=== PATIENT | male | born 1965 | race Caucasian/White ===

== ENCOUNTER 2019-07-16 09:01 | Day surgery (SDC) | payer OTHER ==
[~2019-07-16 09:01] MED LIST: BUPR1 PO; CEPH500 PO; IBUP800 PO
--- NOTE | 2019-07-16 11:20 | NUR ---
PT HAS HAD UNCOMPLICATED POST PROCEDURE COURSE TO THIS POINT. NO C/O PAIN OR DISCOMFORT. SITTING IN UPRIGHT POSITION ON STRETCHER WATCHING VIDEOS ON PHONE. S.O. AT BEDSIDE. ACCESS SITE TO RIGHT POSTERIOR MID BACK WITHOUT DRAINAIGE. SOFT SURROUNDING AREA. NO SWELLING NOTED. VSS.
--- NOTE | 2019-07-16 11:40 | NUR ---
PT AMBULATED TO BATHROOM WITHOUT DIFFICULTY. NO C/O DIZZINESS. STEADY ON FEET. CONTINUES TO DENY PAIN.
--- NOTE | 2019-07-16 12:38 | NUR ---
Discharge instructions reviewed with patient. Patient verbalizes understanding. Copy given to patient to take home. AMBULATED OUT OF DEPARTMENT.
[2019-07-31] MEDS ORDERED: SUBOXONE 8 MG-1 EACH SL (16:12)
[2019-07-31] MEDS ORDERED: Budeprion Sr150 MG PO (16:12)
[2019-07-31] MEDS ORDERED: AMLO10 PO (16:13)
[2019-07-31] MEDS ORDERED: LISI20 PO (16:13)
[2019-07-31] MEDS ORDERED: IBUP800 PO (16:14)
[2019-07-31] MEDS ORDERED: Hair, Skin & N1 EACH PO (16:14)
[2019-07-31] MEDS ORDERED: TRAZ50 PO (16:16)
[2019-07-31] MEDS ORDERED: DICL75ER PO (16:18)
[2019-07-31] MEDS ORDERED: CLOBET30L TOP (16:19)
[2019-07-31] MEDS ORDERED: CYCL10 PO (16:21)
[2019-07-31] MEDS ORDERED: UREA226.8 GM TOP (16:21)
[2019-07-31] MEDS ORDERED: ALBU90OI INH (16:22)
== END 2019-07-16 23:10 | disposition home or self-care (01) ==
LOC: CT 09:01
DX: C96.9 Malignant neoplasm of lymphoid, hematopoietic and related tissue, unspecified (principal); I10 Essential (primary) hypertension; Z87.891 Personal history of nicotine dependence
CPT/HCPCS: 49180; 77012; 88305; 88341; 88342

== ENCOUNTER 2019-07-25 13:45 | Day surgery (SDC) | payer OTHER ==
[~2019-07-25] VITALS: Ht 200.7 cm; Wt 106.0 kg
[2019-07-25] MEDS ORDERED: DICMIS50EC (14:26)
--- NOTE | 2019-07-25 16:39 | NUR ---
07/25/19 1639 Belén Shaw S 1418 ASSESSING PT. FOR HIS UPPER ENDO. OBSERVED 3LEAD EKG & NOTIFIED DR. CLAYTON OF PT.'S RHYTHM, ORDER RECEIVED FOR 12LEAD EKG WHICH WAS DONE & SHOWED ATRIAL FLUTTER & ACUTE NM FROM [facility] ON 12LEAD. DR. CLAYTON & DR. HALL TALKED WITH PT. & INSTRUCTED PT. THAT THE UPPER ENDO NEEDED TO BE CANCELLED & HE NEEDED TO GO TO THE ER. PT. REFUSED TO GO TO THE ER SO DR. HALL ORDERED A TROPONIN STAT HERE AT [facility]. PT. WAS ADVISED TO STAY HERE FOR THE RESULTS OF THE LAB DRAW BUT REFUSED TO WAIT SO SIGNED A AMA FORM AT 1541. TROPONIN WAS DRAWN AT 1530 BY [facility] PER DR. SAM. DR. BLANK ALSO INSTRUCTED PT. TO GO TO THE ER BUT REFUSED. DR. BLANK INFORMED PT. OF RISKS WHICH WERE LISTED ON THE AMA FORM.[facility]ANNA INSTUCTED PT. THAT IF HE HAD ANY CHEST PAIN OR PRESSURE, ARM PAIN OR NUMBNESS, SOB, DIZZINESS & NAUSEA OR ANYTHING ABNORMAL FEELING THAT HE NEEDED TO GO TO THE ER OR CALL 911. PT. AGREED. PT.'S IV WAS ALSO DISCONTINUED AT 1530. PT. AMBULATED WITH TO [facility].
[2019-07-31] MEDS ORDERED: SUBOXONE 8 MG-1 EACH SL (16:12)
[2019-07-31] MEDS ORDERED: Budeprion Sr150 MG PO (16:12)
[2019-07-31] MEDS ORDERED: LISI20 PO (16:13)
[2019-07-31] MEDS ORDERED: AMLO10 PO (16:13)
[2019-07-31] MEDS ORDERED: Hair, Skin & N1 EACH PO (16:14)
[2019-07-31] MEDS ORDERED: IBUP800 PO (16:14)
[2019-07-31] MEDS ORDERED: TRAZ50 PO (16:16)
[2019-07-31] MEDS ORDERED: DICL75ER PO (16:18)
[2019-07-31] MEDS ORDERED: CLOBET30L TOP (16:19)
[2019-07-31] MEDS ORDERED: UREA226.8 GM TOP (16:21)
[2019-07-31] MEDS ORDERED: CYCL10 PO (16:21)
[2019-07-31] MEDS ORDERED: ALBU90OI INH (16:22)
== END 2019-07-25 13:50 | disposition home or self-care (01) ==
LOC: ORSCSDS 13:45
DX: C80.1 Malignant (primary) neoplasm, unspecified (principal); R59.9 Enlarged lymph nodes, unspecified; Z53.9 Procedure and treatment not carried out, unspecified reason
CPT/HCPCS: 84484; 93005; 93010; J7120

== ENCOUNTER 2019-08-02 06:55 | Day surgery (SDC) | payer OTHER ==
[~2019-08-02] VITALS: Ht 193 cm; Wt 109.1 kg
[~2019-08-02 06:55] MED LIST changes: +ALBU90OI INH; +AMLO10 PO; +Budeprion Sr150 MG PO; +CLOBET30L TOP; +CYCL10 PO; +DICL75ER PO; +DICMIS50EC; +Hair, Skin & N1 EACH PO; +LISI20 PO; +SUBOXONE 8 MG-1 EACH SL; +TRAZ50 PO; +UREA226.8 GM TOP
--- NOTE | 2019-08-02 09:20 | NUR ---
0830- History, Chart, Medications and Allergies reviewed before start of procedure. Patient confirms NPO status and agrees with scheduled surgery. Patient States Post-Procedure ride home has been arranged with his .
--- NOTE | 2019-08-02 09:44 | NUR ---
0935- NO C/O. PATIENT ALERT AND TALKING, BREATHING RA. VSS. Discharge instructions reviewed with patient. Patient verbalizes understanding. Copy given to patient to take home. Patient verbalizes desire to discharge home. Tolerinag PO fluids. Gait steady. Up to dress.
== END 2019-08-02 09:40 | disposition home or self-care (01) ==
LOC: ORSCMMR 06:55 → ORD 08:30 → ORSCMMR 09:40
PROVIDERS: Surgery
PROC: 0DJ08ZZ Inspection of Upper Intestinal Tract, Via Natural or Artificial Opening Endoscopic (ICD-10-PCS; principal; 2019-08-02 08:30)
DX: C80.1 Malignant (primary) neoplasm, unspecified (principal); I10 Essential (primary) hypertension; F41.8 Other specified anxiety disorders; Z79.899 Other long term (current) drug therapy
CPT/HCPCS: J2250; J2704; J7120

== ENCOUNTER 2020-10-19 14:47 | Emergency (ER) | payer OTHER ==
[~2020-10-19] VITALS: Ht 200.7 cm; Wt 117.9 kg
[2020-10-19 15:21] LABS: BASOPHILS ABSOLUTE AUTO 0.03 K/mm3 (0.00-0.23); BASOPHILS PERCENT AUTO 1 % (0-2); EOSINOPHILS ABSOLUTE AUTO 0.09 K/mm3 (0.00-0.68); EOSINOPHILS PERCENT AUTO 1 % (0-6); Hemoglobin 13.9 g/dL (13.5-17.5); IMMATURE GRAN ABSOLUTE AUTO 0.03 K/mm3 (0.00-0.10); IMMATURE GRAN PERCENT AUTO 1 % (0-1); LYMPHOCYTES ABSOLUTE AUTO 1.65 K/mm3 (0.84-5.20); LYMPHOCYTES PERCENT AUTO 26 % (21-46); MONOCYTES ABSOLUTE AUTO 0.54 K/mm3 (0.16-1.47); MONOCYTES PERCENT AUTO 8 % (4-13); Mean Corpuscular HGB 28.9 pg (26.0-34.0); Mean Corpuscular HGB Conc 33.9 g/dL (31.5-36.5); Mean Corpuscular Volume 85 fL (80-100); Mean Platelet Volume 9.5 fL (9.1-12.4); NEUTROPHILS ABSOLUTE AUTO 4.13 K/mm3 (1.96-9.15); NEUTROPHILS PERCENT AUTO 64 % (41-73); Platelet Count 255 K/mm3 (150-400); RDW Coefficient Variation 13.7 % (11.7-14.2); RDW Standard Deviation 42.8 fL (35.1-46.3); Red Blood Cell Count 4.81 M/mm3 (4.30-5.90); White Blood Cell Count 6.47 K/mm3 (4.00-11.30)
[2020-10-19 15:29] LABS: Source, Urine Clean Catch
[2020-10-19 15:35] LABS: Appearance, Urine Clear (Clear); Bilirubin, Urine Neg (Neg); Blood, Urine 1+ (Neg); Color, Urine Yellow (P-Yellow); Glucose Qualitative, Urine Neg (Neg); Ketones, Urine Neg (Neg); Leukocyte Esterase, Urine Neg (Neg); Nitrite, Urine Neg (Neg); Protein, Urine Neg (Neg); Urobilinogen, Urine NORM (Normal)
[2020-10-19 15:53] LABS: Alanine Aminotransfer (ALT/SGP 139 U/L (12-78); Albumin, Blood 3.1 g/dL (3.4-5.0); Albumin/Globulin Ratio 0.7 (0.8-1.8); Alk Phos 384 U/L (50-136); Anion Gap 7 mmol/L (6-16); Aspartate Aminotrans (AST/SGOT 36 U/L (12-37); Bilirubin, Total 0.5 mg/dL (0.1-1.0); Blood Urea Nitrogen 19 mg/dL (8-24); Bun/Creatinine Ratio 22.5 (12.0-20.0); CO2, Blood 26 mmol/L (21-32); Calcium, Blood 8.9 mg/dL (8.5-10.1); Chloride, Blood 103 mmol/L (98-108); Creatinine, Blood 0.85 mg/dL (0.60-1.20); Globulin, Blood 4.3 g/dL (2.2-4.0); Glomerular Filtration Rate >60 (60-); Glucose, Blood 173 mg/dL (70-99); Potassium, Blood 4.2 mmol/L (3.5-5.5); Sodium, Blood 136 mmol/L (136-145); Total Protein, Blood 7.4 g/dL (6.4-8.2)
[2020-10-19 16:10] LABS: Bacteria Few /hpf; Squamous Epithelial Cells Not Seen /hpf (Few); White Blood Cells, Urine 0-2 /hpf (0-5)
[2020-10-19 16:42] LABS: Influenza A, PCR Negative (NEGATIVE); Influenza B, PCR Negative (NEGATIVE); Resp Syncytial Virus, PCR Negative (NEGATIVE); SARS-Cov-2 (COVID-19) PCR, MMC Negative (NEGATIVE)
== END 2020-10-19 17:10 | disposition home or self-care (01) ==
LOC: ER 14:47
PROVIDERS: Emergency Medicine
DX: G62.9 Polyneuropathy, unspecified (principal); B34.9 Viral infection, unspecified; Z20.828 Contact with and (suspected) exposure to other viral communicable diseases; Z79.899 Other long term (current) drug therapy
CPT/HCPCS: 0241U; 36415; 80053; 81001; 85025; 93005; 93010; 99283-25

== ENCOUNTER 2020-10-22 19:25 | Emergency (ER) | payer OTHER ==
[~2020-10-22] VITALS: Ht 200.7 cm; Wt 117.9 kg
[2020-10-22 20:22] LABS: BASOPHILS ABSOLUTE AUTO 0.03 K/mm3 (0.00-0.23); BASOPHILS PERCENT AUTO 1 % (0-2); EOSINOPHILS ABSOLUTE AUTO 0.04 K/mm3 (0.00-0.68); EOSINOPHILS PERCENT AUTO 1 % (0-6); Hematocrit 38.9 % (37.0-53.0); IMMATURE GRAN ABSOLUTE AUTO 0.04 K/mm3 (0.00-0.10); IMMATURE GRAN PERCENT AUTO 1 % (0-1); LYMPHOCYTES ABSOLUTE AUTO 1.06 K/mm3 (0.84-5.20); LYMPHOCYTES PERCENT AUTO 19 % (21-46); MONOCYTES ABSOLUTE AUTO 0.67 K/mm3 (0.16-1.47); MONOCYTES PERCENT AUTO 12 % (4-13); Mean Corpuscular HGB 28.8 pg (26.0-34.0); Mean Corpuscular HGB Conc 33.4 g/dL (31.5-36.5); Mean Corpuscular Volume 86 fL (80-100); Mean Platelet Volume 8.9 fL (9.1-12.4); NEUTROPHILS ABSOLUTE AUTO 3.69 K/mm3 (1.96-9.15); NEUTROPHILS PERCENT AUTO 67 % (41-73); Platelet Count 363 K/mm3 (150-400); RDW Coefficient Variation 13.3 % (11.7-14.2); RDW Standard Deviation 41.9 fL (35.1-46.3); Red Blood Cell Count 4.52 M/mm3 (4.30-5.90); White Blood Cell Count 5.53 K/mm3 (4.00-11.30)
[2020-10-22 20:37] LABS: Source, Urine Clean Catch
[2020-10-22 20:40] LABS: Bilirubin, Urine Neg (Neg); Blood, Urine Neg (Neg); Glucose Qualitative, Urine Neg (Neg); Ketones, Urine Neg (Neg); Leukocyte Esterase, Urine Neg (Neg); Nitrite, Urine Neg (Neg); Protein, Urine Neg (Neg); Specific Gravity, Urine 1.005 (1.003-1.022); Urobilinogen, Urine NORM (Normal)
[2020-10-22 20:42] LABS: Alanine Aminotransfer (ALT/SGP 66 U/L (12-78); Albumin, Blood 3.1 g/dL (3.4-5.0); Albumin/Globulin Ratio 0.8 (0.8-1.8); Alk Phos 267 U/L (50-136); Anion Gap 7 mmol/L (6-16); Aspartate Aminotrans (AST/SGOT 22 U/L (12-37); Bilirubin, Total 0.5 mg/dL (0.1-1.0); Blood Urea Nitrogen 12 mg/dL (8-24); Bun/Creatinine Ratio 15.6 (12.0-20.0); CO2, Blood 27 mmol/L (21-32); Calcium, Blood 8.9 mg/dL (8.5-10.1); Chloride, Blood 95 mmol/L (98-108); Creatinine, Blood 0.77 mg/dL (0.60-1.20); Glomerular Filtration Rate >60 (60-); Glucose, Blood 104 mg/dL (70-99); Potassium, Blood 3.7 mmol/L (3.5-5.5); Sodium, Blood 129 mmol/L (136-145); Total Protein, Blood 7.1 g/dL (6.4-8.2); Troponin I <0.015 ng/mL (0.000-0.040)
[2020-10-22 20:45] LABS: Appearance, Urine Clear (Clear); Color, Urine Yellow (P-Yellow)
[2020-10-22] MEDS ORDERED: Ativan1 MG PO (22:08)
== END 2020-10-22 22:57 | disposition home or self-care (01) ==
LOC: ER 19:25
PROVIDERS: Emergency Medicine
DX: R10.13 Epigastric pain (principal); Z79.899 Other long term (current) drug therapy
CPT/HCPCS: 36415; 71275; 74175; 80053; 81003; 83690; 84484; 85025; 96374-59; 96375-59; 96376-59; 99284-25; A9270; J1885; J2060; Q9967